=== PATIENT | female | born 1945 | race Caucasian/White ===

== ENCOUNTER 2017-08-15 10:41 | Emergency (ER) | payer MEDICARE ==
[~2017-08-15] VITALS: Ht 154.9 cm; Wt 80.0 kg
[2017-08-15 10:43] VITALS: BP 135/68; PULSE 74; RESP 16; TEMP 97.8; O2SAT 97
[2017-08-15] MEDS ORDERED: CARV6.252 PO (11:17)
[2017-08-15] MEDS ORDERED: ASPI81CH7 CHEW (11:17)
[2017-08-15] MEDS ORDERED: VALS1TAB65 PO (11:17)
[2017-08-15] MEDS ORDERED: NEXI20CA PO (11:17)
[2017-08-15] MEDS ORDERED: VITA1000 PO (11:17)
[2017-08-15] MEDS ORDERED: LEVO75TA3 PO (11:17)
[2017-08-15] MEDS ORDERED: HYDR25TA5 PO (11:17)
[2017-08-15] MEDS ORDERED: TETANUS/DIPHTHERIA TOXOID ADULT 0.5 ML VIAL IM ONE (12:30)
[2017-08-15] MEDS ORDERED: KETOROLAC TROMETHAMINE 60 MG/2 ML (IM) VIAL IM ONE (12:30)
[2017-08-15] MEDS ORDERED: TRAM50 PO (12:38)
[2017-08-15] MEDS ORDERED: IBUP1TAB7 PO (12:38)
--- NOTE | 2017-08-15 12:38 | PD ---
HPI Chief Complaint: Musculoskeletal Complaint Time Seen by Provider: 11:59 Travel History International Travel<30 days: No Contact w/Intl Traveler<30days: No Traveled to known affect area: No History of Present Illness HPI This is a 72-year-old female here with nontraumatic left knee pain worsening over the last 3 days. She has a history of a torn meniscus in that knee. She is followed by an orthopedist in [place]. She is here visiting for 1 month. She denies fever or chills. Symptom severity is moderate. Worse with weightbearing and relieved with rest. She is also reporting a superficial dog bite to the right forearm. She is reporting that her small dog that her in the arm accidentally yesterday. She has no pain or drainage from the site. [facility] Past Medical History Medical History: Denies Significant Hx Cardiovascular Problems: Yes Diminished Hearing: No Hypertension: Yes Musculoskeletal: Yes (bilat knees) Thyroid Disease: Yes Tetanus Vaccination: Unknown Influenza Vaccination: No ?: Not Menopausal: Yes Past Surgical History Surgical History: No Previous Surgery Social History Alcohol Use: No Tobacco Use: No Substance Use: No Allergies-Medications (Allergen,Severity, Reaction): Coded Allergies: amoxicillin (Verified Allergy, Severe, HIVES, 08/15/17) levofloxacin (Verified Allergy, Severe, HIVES, 08/15/17) Penicillins (Verified Allergy, Intermediate, HIVES, 08/15/17) Reported Meds & Prescriptions Reported Meds & Active Scripts Active Reported Nexium (Esomeprazole DR) 20 Mg Capdr 20 Mg PO DAILY Hydrochlorothiazide 25 Mg Tab 25 Mg PO DAILY Aspirin Children's (Aspirin) 81 Mg Chew 81 Mg CHEW DAILY Levothyroxine (Levothyroxine Sodium) 75 Mcg Tab 75 Mcg PO DAILY Vitamin D-1000 (Cholecalciferol) 1,000 Unit Tab 2,000 Units PO DAILY Valsartan 160 Mg Tab 160 Mg PO DAILY Carvedilol 6.25 Mg Tab 6.25 Mg PO BID Review of Systems Except as stated in HPI: all other systems reviewed are Neg General / Constitutional: No: Fever Eyes: No: Visual changes HENT: No: Headaches Cardiovascular: No: Chest Pain or Discomfort Respiratory: No: Shortness of Breath Gastrointestinal: No: Abdominal Pain Genitourinary: No: Dysuria Neurologic: No: Weakness Physical Exam Narrative GENERAL: Alert and well-appearing 9-year-old female. SKIN: Warm and dry. Superficial puncture wound to the right forearm with mild amount of surrounding ecchymosis. There is no induration. No erythema. No drainage from the site. HEAD: Normocephalic. EYES: No injection or drainage. NECK: Supple MUSCULOSKELETAL: No cyanosis. Patient has mild generalized tenderness to anterior aspect of both knees. No warmth or erythema. No deformity. No laxity. 2+ distal pulses. Normal sensation. Brisk cap refill. Data Data Last Documented VS Vital Signs Date Time Temp Pulse Resp B/P (MAP) Pulse Ox O2 Delivery O2 Flow Rate FiO2 08/15/17 10:43 97.8 74 16 135/68 (90) 97 Orders Orders Ketorolac Inj (Toradol Inj) (08/15/17 12:30) Tetanus/Diphtheria Tox Adult (Tetanus/Di (08/15/17 12:30) Oscar Bandage (08/15/17 12:30) MDM Medical Decision Making Medical Screen Exam Complete: Yes Emergency Medical Condition: Yes Differential Diagnosis Known meniscal injury of the left knee, osteo-arthritis of both knees, dog bite Narrative Course 72-year-old female here with increasing left knee pain over the last several days. She has a known meniscal injury. She is followed by an orthopedist. She denies any injury or trauma. The extremity is neurovascularly intact. Oscar wrap was applied. She will be put on NSAIDs and pain medication. Encouraged to follow-up with her orthopedist when she returns to [place]. She also has a superficial dog bite/abrasion to the right forearm. No evidence of infection. Antibiotics were offered and patient declined. Tetanus immunization was updated. Diagnosis Primary Impression: Knee pain Qualified Codes: M25.562 - Pain in left knee Referrals: Orthopedist Additional Instructions: Oscar wrap for support. Ice and elevate the extremity. Take the medication as directed. Follow-up with orthopedist/primary doctor Scripts Tramadol (Ultram) 50 Mg Tab 50 MG PO Q6H Y for PAIN, #12 TAB 0 Refills Prov: Faye Damon 08/15/17 Ibuprofen (Ibuprofen) 800 Mg Tab 800 MG PO Q6HR Y for PAIN, #40 TAB 0 Refills Prov: Faye Damon 4/1/18 Disposition: 01 DISCHARGE HOME Condition: Stable Leedy,Faye N CIAIO LUMITE INJECTOR Aug 15, 2017 12:38
== END 2017-08-15 13:15 | disposition home or self-care (01) ==
LOC: PHED 10:41 → PHEFT 13:15
DX: M25.562 Pain in left knee (principal); S50.871A Other superficial bite of right forearm, initial encounter; I10 Essential (primary) hypertension; E07.9 Disorder of thyroid, unspecified; W54.0XXA Bitten by dog, initial encounter; Z23 Encounter for immunization; Z79.82 Long term (current) use of aspirin; Z79.899 Other long term (current) drug therapy; Z88.0 Allergy status to penicillin
CPT/HCPCS: 90471; 90714; 96372; 99283; J1885